=== PATIENT | male | born 1955 | race Hispanic/Latino ===

== ENCOUNTER 2019-09-30 14:06 | Emergency (ER) | payer OTHER ==
[2019-09-30] MEDS ORDERED: SODIUM CHLORIDE 0.9% 1000 ML 1,000 ML ONE ×2 (14:22→17:21)
--- NOTE | 2019-09-30 17:15 | XRay Report ---
XR chest 1V ap INDICATION / CLINICAL INFORMATION: Lightheadedness/Dizziness. COMPARISON: None available. FINDINGS: SUPPORT DEVICES: None. HEART / MEDIASTINUM: No significant abnormality. LUNGS / PLEURA: Lungs are clear. Costophrenic sulci are sharp. No pneumothorax. ADDITIONAL FINDINGS: No significant additional findings. IMPRESSION: 1. No acute findings. Signer Name: Micheal Booth MD Signed: 09/30/2019 5:11 PM Workstation Name: [id number]
[2019-09-30 17:16] LABS: Basophils % (Auto) 0.2 % (0.0-1.8); Hematocrit 30.4 % (35.5-45.6); Hemoglobin 9.8 gm/dl (11.8-15.2); Lymphocytes # (Auto) 1.1 K/mm3 (1.2-5.4); Lymphocytes % (Auto) 7.5 % (13.4-35.0); Mean Corpuscular HGB Conc 32 % (32-34); Mean Corpuscular Volume 92 fl (84-94); Monocytes # (Auto) 1.2 K/mm3 (0.0-0.8); Platelet Count 125 K/mm3 (140-440); Red Cell Distribution Width 15.2 % (13.2-15.2)
[2019-09-30] MEDS ORDERED: SODIUM CHLORIDE 0.9% 1000 ML 1,000 ML IV ONE ×2 (17:18→17:34)
[2019-09-30 17:24] LABS: INR 1.36 (0.87-1.13)
[2019-09-30 17:27] LABS: BUN/Creatinine Ratio 13; Blood Urea Nitrogen 32 mg/dL (9-20); Hemolysis Index 12
--- NOTE | 2019-09-30 17:30 | Emergency Department Report ---
ED General Adult HPI - General Chief complaint: Dizziness Stated complaint: DIZZINESS/HYPOTENSION Time Seen by Provider: 09/30/19 15:54 Source: patient, police, EMS Mode of arrival: Stretcher Limitations: No Limitations - History of Present Illness Initial comments: This is a 64-year-old man who is a long-term inmate of the [facility]. He felt weak and somewhat dizzy today. He went to the [facility]. He was found to be orthostatic. He was sent to the emergency department for evaluation of hypotension. He arrived with a blood pressure in the 90s. Patient tells me he was feeling quite weak today. He denied fever or chills. On complete review of systems he mentioned to me that he had left flank pain which he noted this morning which is apparently mild in intensity. He states that it somewhat radiated "to the other side". He does not complain of anterior abdominal pain nor any other apparent symptoms. He further denied any signs of GI bleeding change in bowel habits cough or respiratory symptoms. Patient denied any history of GI bleeding, serious infection has a history of hypertension. He states that he has been told his blood pressure runs low in the past. -: Gradual, hour(s) Location: left (Flank) Radiation: other (As above) Quality: aching Consistency: now resolved (Not complaining of pain at the time of my initial encounter) Improves with: none Worsens with: none Associated Symptoms: denies other symptoms (Except as above indicated) Treatments Prior to Arrival: none - Related Data Allergies Allergy/AdvReac Type Severity Reaction Status Date / Time No Known Allergies Allergy Unverified 09/30/19 14:31 ED Review of Systems ROS: Stated complaint: DIZZINESS/HYPOTENSION Other details as noted in HPI Constitutional: weakness. denies: chills, fever Eyes: denies: eye pain, eye discharge, vision change ENT: denies: ear pain, throat pain Respiratory: denies: cough, shortness of breath, wheezing Cardiovascular: denies: chest pain, palpitations Endocrine: no symptoms reported Gastrointestinal: as per HPI (Left flank pain). denies: abdominal pain, nausea, diarrhea Genitourinary: denies: urgency, dysuria Musculoskeletal: back pain. denies: joint swelling, arthralgia Skin: denies: rash, lesions Neurological: denies: headache, weakness, paresthesias Psychiatric: denies: anxiety, depression Hematological/Lymphatic: denies: easy bleeding, easy bruising ED Past Medical Hx - Past Medical History Previous Medical History?: Yes Additional medical history: Cerebral aneurysm I presume with coiling - Surgical History Past Surgical History?: No - Social History Smoking Status: Former Smoker Other Social History: Incarcerated patient ED Physical Exam - General Limitations: No Limitations General appearance: alert, in no apparent distress, other (Appears pale) - Head Head exam: Present: atraumatic, normocephalic - Eye Eye exam: Present: normal appearance. Absent: scleral icterus - ENT ENT exam: Present: mucous membranes moist - Neck Neck exam: Present: normal inspection - Respiratory Respiratory exam: Present: normal lung sounds bilaterally. Absent: respiratory distress - Cardiovascular Cardiovascular Exam: Present: regular rate, normal rhythm. Absent: systolic murmur, diastolic murmur, rubs, gallop - GI/Abdominal GI/Abdominal exam: Present: soft, normal bowel sounds, pulsatile mass. Absent: tenderness, guarding - Rectal Rectal exam: Present: deferred - Extremities Exam Extremities exam: Present: normal inspection - Back Exam Back exam: Present: normal inspection. Absent: tenderness, CVA tenderness (L) - Neurological Exam Neurological exam: Present: alert, oriented X3, CN II-XII intact. Absent: motor sensory deficit - Psychiatric Psychiatric exam: Present: normal affect, normal mood - Skin Skin exam: Present: warm, dry, intact, pallor. Absent: rash ED Course Vital Signs 09/30/19 14:28 Pulse Rate 87 Respiratory 20 Rate Blood Pressure 67/33 O2 Sat by Pulse 97 Oximetry - Reevaluation(s) Reevaluation #1: Patient was found to have an elevated lactic acid level. His blood pressure improved with fluids. He was sent for a plain CT of the abdomen and pelvis when his creatinine was found to be 2.4. He was found to have a large abdominal aort ic aneurysm with rupture into the left retroperitoneum and some minor overflow into the intraperitoneal space. I do not yet have the official radiology report. 09/30/19 19:09 Reevaluation #2: Patient is given preemptively 2 units of red blood cells. I did speak to our [facility] surgeon Dr. Vasquez. He stated that we are incapable of providing care for this patient in our OR here. I spoke to Dr. Cristobal Leary through the [place] transfer center. He was very kind to accept this patient for direct transfer to [facility] either for EVAR or open repair. The patient is transferred and stabilized to the degree possible at this facility. 09/30/19 19:11 ED Medical Decision Making - Lab Data Result diagrams: 09/30/19 16:39 09/30/19 16:39 Laboratory Results - last 24 hr 09/30/19 09/30/19 09/30/19 16:39 16:39 16:39 WBC 15.3 H RBC 3.30 L Hgb 9.8 L Hct 30.4 L MCV 92 MCH 30 MCHC 32 RDW 15.2 Plt Count 125 L Lymph % (Auto) 7.5 L Crane % (Auto) 8.0 H Eos % (Auto) 0.0 Baso % (Auto) 0.2 Lymph # 1.1 L Crane # 1.2 H Eos # 0.0 Baso # 0.0 Seg Neutrophils % 84.3 H Seg Neutrophils # 12.9 H PT 17.1 H INR 1.36 H APTT 35.0 Sodium 139 Potassium 4.0 Chloride 102.6 Carbon Dioxide 18 L Anion Gap 22 BUN 32 H Creatinine 2.4 H Estimated GFR 27 BUN/Creatinine Ratio 13 Glucose 256 H Lactic Acid Calcium 8.0 L Magnesium Total Creatine Kinase 19 L Troponin T < 0.010 NT-Pro-B Natriuret Pep Blood Type 09/30/19 09/30/19 09/30/19 16:39 16:39 16:39 WBC RBC Hgb Hct MCV MCH MCHC RDW Plt Count Lymph % (Auto) Crane % (Auto) Eos % (Auto) Baso % (Auto) Lymph # Crane # Eos # Baso # Seg Neutrophils % Seg Neutrophils # PT INR APTT Sodium Potassium Chloride Carbon Dioxide Anion Gap BUN Creatinine Estimated GFR BUN/Creatinine Ratio Glucose Lactic Acid 5.80 H* Calcium Magnesium 2.00 Total Creatine Kinase Troponin T NT-Pro-B Natriuret Pep 489.9 Blood Type O POSITIVE - EKG Data -: EKG Interpreted by [facility] EKG shows normal: sinus rhythm, axis, intervals, QRS complexes, ST-T waves Rate: normal - EKG Data Interpretation: no acute changes - Radiology Data Radiology results: image reviewed (Chest x-ray no acute process, CT findings as above) Critical Care Time: Yes Critical care time in (mins) excluding proc time.: 90 Critical care attestation.: If time is entered above; I have spent that time in minutes in the direct care of this critically ill patient, excluding procedure time. ED Disposition Clinical Impression: Abdominal aortic aneurysm, ruptured Disposition: [id number]/TX-[id number] ANOTHER TYPE HLTHCARE Is pt being admited?: No Does the pt Need Aspirin: No Condition: Stable Referrals: PRIMARY CARE, [Primary Care Provider] - 3-5 Days Time of Disposition: 19:13
[2019-09-30] MEDS ORDERED: CEFEPIME/NS 1 GM/100 ML 1 GM/100 ML BAG IV ONE (17:33)
[2019-09-30 17:34] LABS: Creatine Kinase MB < 1.0 ng/mL (0.0-4.0)
[2019-09-30] MEDS ORDERED: VANCOMYCIN PHARMACY TO DOSE IV SCH (18:00)
[2019-09-30] MEDS ORDERED: SODIUM CHLORIDE 0.9% 500 ML 500 ML IV ONE (18:10)
--- NOTE | 2019-09-30 18:18 | Cat Scan Report ---
CT ABDOMEN AND PELVIS WITHOUT CONTRAST INDICATION: l flank pain. TECHNIQUE: Axial CT images were obtained through the abdomen and pelvis without IV contrast. All CT scans at [facility] are performed using CT dose reduction for ALARA by means of automated exposure control. COMPARISON: CT abdomen and pelvis 09/30/2019 FINDINGS: LOWER CHEST: No significant abnormality. LIVER: No significant abnormality. GALLBLADDER: No significant abnormality. BILE DUCTS: No significant abnormality. PANCREAS: No significant abnormality. SPLEEN: Calcified splenic granulomas ADRENALS: No significant abnormality. RIGHT KIDNEY and URETER: No significant abnormality. LEFT KIDNEY and URETER: Large amount of hyperdense blood left retroperitoneal/perinephric space. STOMACH and SMALL BOWEL: No significant abnormality. COLON: No significant abnormality. APPENDIX: No significant abnormality. PERITONEUM: Small to moderate amount of hyperdense free fluid characteristic for hemoperitoneum. No f ree air. No fluid collection. LYMPH NODES: No significant adenopathy. AORTA and ARTERIES: Massive abdominal aortic aneurysm measuring 8.3 x 10.2 x 20.5 cm in AP by transve rse by craniocaudal dimensions with irregularity of the left aortic wall characteristic for rupture a s well as image hematoma more inferiorly. IVC and VEINS: No significant abnormality. URINARY BLADDER: No significant abnormality. REPRODUCTIVE ORGANS: Thick-walled partially collapsed urinary bladder. ADDITIONAL FINDINGS: None. SKELETAL SYSTEM: Moderate degenerative changes lumbar spine IMPRESSION: 1. Ruptured/leaking 10 cm abdominal aortic aneurysm with left retroperitoneal and intraperitoneal hem orrhage as well as intramural hematoma. CRITICAL RESULT: Ruptured 10 cm abdominal aortic aneurysm Time of Discovery: 5:08 PM central time 09/30/2019 Time of Communication: 5:10 PM central 09/30/2019 Licensed Practitioner Receiving Report: Dr Schreiber emergency physician Read Back Performed: Yes. Signer Name: James Flores MD Signed: 09/30/2019 6:13 PM Workstation Name: [id number]
[2019-09-30] MEDS ORDERED: VANCOMYCIN 1,250 MG in SODIUM CHLORIDE 0.9% 250ML 250 ML IV ONE (19:00)
[2019-10-01 00:27] VITALS: BP 117/79
== END 2019-09-30 19:25 | disposition other institution (70) ==
LOC: ED 14:06
DX: I71.3 Abdominal aortic aneurysm, ruptured (principal)
CPT/HCPCS: 36415; 36430; 71045; 74176; 80048; 82140; 82550; 82553; 83735; 83880; 84484; 85025; 85610; 85730; 86850; 86900; 86901; 86920; 87040; 93005; 96360; 96361; 99291; 99292; J7030; J7040; P9016; J3370; J7050